=== PATIENT | female | born 1995 | race Caucasian/White ===

== ENCOUNTER 2018-10-26 10:50 | Emergency (ER) | payer OTHER ==
[2018-10-26] MEDS: IBUPROFEN 600 MG TAB PO (12:02)
== END 2018-10-26 13:19 | disposition home or self-care (01) ==
LOC: FTE 13:19
DX: R51 Headache (principal); R07.89 Other chest pain; F41.9 Anxiety disorder, unspecified
CPT/HCPCS: 71046; 93005; 99284-25